=== PATIENT | female | born 1980 | race Caucasian/White ===

== ENCOUNTER 2018-05-02 16:24 | Emergency (ER) | payer OTHER ==
[2018-05-02] MEDS ORDERED: Lorazepam 2 MG/ML VIAL ONE (17:25)
[2018-05-02] MEDS ORDERED: Ketorolac Tromethamine 60 MG/2 ML VIAL ONE (17:26)
== END 2018-05-02 18:38 | disposition home or self-care (01) ==
LOC: NAV ERS 16:24
DX: M54.5 Low back pain (principal); F41.9 Anxiety disorder, unspecified; F17.210 Nicotine dependence, cigarettes, uncomplicated; V49.49XA Driver injured in collision with other motor vehicles in traffic accident, initial encounter
CPT/HCPCS: 96372; J1885; J2060

== ENCOUNTER 2021-10-17 18:32 | Emergency (ER) | payer OTHER ==
[2021-10-17] MEDS ORDERED: Sulfameth/Trimethoprim DS 800-160mg TAB ONE (19:21)
[2021-10-17] MEDS ORDERED: traMADol HCl 50 MG TAB ONE (19:29)
== END 2021-10-17 20:43 | disposition home or self-care (01) ==
LOC: NAV ERS 18:32
DX: L03.032 Cellulitis of left toe (principal); F17.210 Nicotine dependence, cigarettes, uncomplicated
CPT/HCPCS: 99283

== ENCOUNTER 2022-03-29 10:49 | Emergency (ER) | payer OTHER ==
[2022-03-29] MEDS ORDERED: Lidocaine 1% (PF) 30 ML VIAL ONE (11:21)
[2022-03-29] MEDS ORDERED: Cephalexin 250 MG CAP ONE (11:39)
== END 2022-03-29 12:06 | disposition home or self-care (01) ==
LOC: NAV ERS 10:49
DX: L03.012 Cellulitis of left finger (principal); F17.210 Nicotine dependence, cigarettes, uncomplicated
CPT/HCPCS: 10060; J2001

== ENCOUNTER 2022-04-04 08:12 | Outpatient (CLI) | payer OTHER | END 2022-04-04 08:13 | disposition home or self-care (01) | LOC: NAV RAD 08:12 | PROVIDERS: ATTEND Family Medicine | DX: M25.512 Pain in left shoulder (principal); M25.562 Pain in left knee; M19.012 Primary osteoarthritis, left shoulder ==